=== PATIENT | male | born 1975 | race Caucasian/White ===

== ENCOUNTER 2021-12-10 15:47 | Emergency (ER) | payer MEDICAID ==
[~2021-12-10] VITALS: Ht 152.4 cm; Wt 72.6 kg
[2021-12-10 15:58] VITALS: BP 183/107
--- NOTE | 2021-12-10 16:00 | NUR ---
46 y/o male bib spouse from home, pt states he has been having consistent nosebleeds for 5 days and states he has been having 7/10 colunga. pt states he has not taken his bp medication for 1 month and has been having fatigue and colunga. a&ox4, italian speaking, ambulates with steady gait. ice pack and nose compress applied at this time. pmh: htn nka med: pt has not been compliant with htn medications for 1 mo
[2021-12-10] MEDS ORDERED: NACL 0.9% 1,000 ML IV ONE (16:05)
[2021-12-10] MEDS ORDERED: ENALAPRILAT 2.5 MG/2 ML VIAL IVP ONE (16:05)
[2021-12-10] MEDS ORDERED: PHENYLEPHRINE 1% 15 ML BTL NS PRN (16:55)
[2021-12-10 18:08] VITALS: BP 155/81
--- NOTE | 2021-12-10 18:08 | NUR ---
Patient discharged with v/s stable. Written and verbal after care instructions given and explained. Patient verbalized understanding. Ambulatory with steady gait. All questions addressed prior to discharge. Advised to follow up with PMD.
[2021-12-10] MEDS ORDERED: LOSA50TA66 PO ×2 (18:43→19:34)
== END 2021-12-10 18:08 | disposition home or self-care (01) ==
LOC: MED 15:47
DX: R04.0 Epistaxis (principal); I10 Essential (primary) hypertension; Z72.89 Other problems related to lifestyle; Z79.899 Other long term (current) drug therapy; Z98.890 Other specified postprocedural states
CPT/HCPCS: 96361; 96374; 99283; J3490; J7030

== ENCOUNTER 2021-12-13 01:15 | Emergency (ER) | payer MEDICAID ==
[~2021-12-13] VITALS: Ht 157.5 cm; Wt 72.6 kg
[~2021-12-13 01:15] MED LIST: LOSA50TA66 PO
[2021-12-13 01:34] VITALS: BP 189/123
--- NOTE | 2021-12-13 01:40 | NUR ---
TO LOBBY FOLLOWING TRIAGE
[2021-12-13] MEDS ORDERED: HYDROcodone/APAP 5/325 MG 1 TAB TAB PO ONE (01:50)
[2021-12-13] MEDS ORDERED: CLONIDINE HYDROCHLORIDE 0.1 MG TAB PO ONE ×2 (01:50→02:40)
--- NOTE | 2021-12-13 02:30 | NUR ---
Patient resting in bed, no s/s of distress.
[2021-12-13] MEDS ORDERED: CLON0.1T16 PO (03:43)
--- NOTE | 2021-12-13 03:43 | NUR ---
Patient states pain is "0/10."
[2021-12-13 03:55] VITALS: BP 148/97
== END 2021-12-13 03:58 | disposition home or self-care (01) ==
LOC: MED 01:15
DX: I10 Essential (primary) hypertension (principal)
CPT/HCPCS: 99283